=== PATIENT | male | born 1965 | race Caucasian/White ===

== ENCOUNTER 2016-08-04 08:00 | Outpatient (CLI) | payer BC ==
[~2016-08-04 08:00] MED LIST: ANAS1TAB8 PO; ATOR10TA PO; CALC-838 PO; CARV6.252 PO; LOSA1TAB36 PO; TADA5TAB2 PO; TEST200V3 IM
== END 2016-08-04 23:59 | disposition home or self-care (01) ==
LOC: WOU 08:00
PROVIDERS: ATTEND Podiatrist Foot & Ankle Surgery
DX: T81.31XA Disruption of external operation (surgical) wound, not elsewhere classified, initial encounter (principal); L90.5 Scar conditions and fibrosis of skin; T25.3 Burn of third degree of ankle and foot; T31.8 Burns involving 80-89% of body surface; X08.8XXS Exposure to other specified smoke, fire and flames, sequela; Z96.652 Presence of left artificial knee joint; I10 Essential (primary) hypertension
CPT/HCPCS: 11043; A6209; A6402

== ENCOUNTER 2016-08-25 14:21 | Outpatient (CLI) | payer BC | END 2016-08-25 23:59 | disposition home or self-care (01) | LOC: WOU 14:21 | PROVIDERS: ATTEND Podiatrist Foot & Ankle Surgery | DX: T81.31XA Disruption of external operation (surgical) wound, not elsewhere classified, initial encounter (principal); I96 Gangrene, not elsewhere classified; T31.8 Burns involving 80-89% of body surface; L90.5 Scar conditions and fibrosis of skin; T25.01 Burn of unspecified degree of ankle | CPT/HCPCS: 11043; A6402 ==

== ENCOUNTER 2016-09-01 13:39 | Outpatient (CLI) | payer BC | END 2016-09-01 23:59 | disposition home or self-care (01) | LOC: WOU 13:39 | PROVIDERS: ATTEND Podiatrist Foot & Ankle Surgery | DX: T81.31XD Disruption of external operation (surgical) wound, not elsewhere classified, subsequent encounter (principal); I10 Essential (primary) hypertension; T31.8 Burns involving 80-89% of body surface; L90.5 Scar conditions and fibrosis of skin; T25.01 Burn of unspecified degree of ankle; X08.8XXS Exposure to other specified smoke, fire and flames, sequela; E78.5 Hyperlipidemia, unspecified | CPT/HCPCS: 11043 ==

== ENCOUNTER 2016-09-06 08:57 | Outpatient (CLI) | payer BC | END 2016-09-06 23:59 | disposition home or self-care (01) | LOC: WOU 08:57 | PROVIDERS: ATTEND Podiatrist Foot & Ankle Surgery | DX: L97.329 Non-pressure chronic ulcer of left ankle with unspecified severity (principal); R60.0 Localized edema | CPT/HCPCS: 93925-TC; 93970-TC ==

== ENCOUNTER 2016-09-08 14:22 | Outpatient (CLI) | payer BC | END 2016-09-08 23:59 | disposition home or self-care (01) | LOC: WOU 14:22 | PROVIDERS: ATTEND Podiatrist Foot & Ankle Surgery | DX: T81.31XD Disruption of external operation (surgical) wound, not elsewhere classified, subsequent encounter (principal); L90.5 Scar conditions and fibrosis of skin; T31.8 Burns involving 80-89% of body surface; T25.01 Burn of unspecified degree of ankle; X08.8XXS Exposure to other specified smoke, fire and flames, sequela; I10 Essential (primary) hypertension; E78.5 Hyperlipidemia, unspecified; R60.0 Localized edema | CPT/HCPCS: 11043; A6402 ==

== ENCOUNTER 2016-09-19 13:16 | Outpatient (CLI) | payer BC | END 2016-09-19 23:59 | disposition home or self-care (01) | LOC: WOU 13:16 | PROVIDERS: ATTEND Podiatrist Foot & Ankle Surgery | DX: T81.31XD Disruption of external operation (surgical) wound, not elsewhere classified, subsequent encounter (principal); L90.5 Scar conditions and fibrosis of skin; T31.8 Burns involving 80-89% of body surface; T25.01 Burn of unspecified degree of ankle; X08.8XXS Exposure to other specified smoke, fire and flames, sequela; I10 Essential (primary) hypertension; E78.5 Hyperlipidemia, unspecified; R60.0 Localized edema; I96 Gangrene, not elsewhere classified | CPT/HCPCS: 11043; A6402 ==

== ENCOUNTER 2016-09-29 14:30 | Outpatient (CLI) | payer BC | END 2016-09-29 23:59 | disposition home or self-care (01) | LOC: WOU 14:30 | PROVIDERS: ATTEND Podiatrist Foot & Ankle Surgery | DX: T81.31XA Disruption of external operation (surgical) wound, not elsewhere classified, initial encounter (principal); L90.5 Scar conditions and fibrosis of skin; T31.8 Burns involving 80-89% of body surface; T25.01 Burn of unspecified degree of ankle; X08.8XXS Exposure to other specified smoke, fire and flames, sequela; I10 Essential (primary) hypertension; E78.5 Hyperlipidemia, unspecified; R60.0 Localized edema | CPT/HCPCS: 15271; A6207; A6402 ×2; Q4131 ×2; A6253 ==

== ENCOUNTER 2016-10-06 14:39 | Outpatient (CLI) | payer BC | END 2016-10-06 23:59 | disposition home or self-care (01) | LOC: WOU 14:39 | PROVIDERS: ATTEND Podiatrist Foot & Ankle Surgery | DX: T81.31XA Disruption of external operation (surgical) wound, not elsewhere classified, initial encounter (principal); L90.5 Scar conditions and fibrosis of skin; T31.8 Burns involving 80-89% of body surface; T25.01 Burn of unspecified degree of ankle; X08.8XXS Exposure to other specified smoke, fire and flames, sequela; I10 Essential (primary) hypertension; E78.5 Hyperlipidemia, unspecified; R60.0 Localized edema | CPT/HCPCS: 11043; A6402 ==

== ENCOUNTER 2016-10-10 14:16 | Outpatient (CLI) | payer BC | END 2016-10-10 23:59 | disposition home or self-care (01) | LOC: WOU 14:16 | PROVIDERS: ATTEND Podiatrist Foot & Ankle Surgery | DX: T81.31XD Disruption of external operation (surgical) wound, not elsewhere classified, subsequent encounter (principal); T25.01 Burn of unspecified degree of ankle; X08.8XXS Exposure to other specified smoke, fire and flames, sequela; I10 Essential (primary) hypertension; E78.5 Hyperlipidemia, unspecified; Z96.652 Presence of left artificial knee joint | CPT/HCPCS: 15271; A6402; Q4131 ==

== ENCOUNTER 2016-10-13 14:06 | Outpatient (CLI) | payer BC | END 2016-10-13 23:59 | disposition home or self-care (01) | LOC: WOU 14:06 | PROVIDERS: ATTEND Podiatrist Foot & Ankle Surgery | DX: T81.31XD Disruption of external operation (surgical) wound, not elsewhere classified, subsequent encounter (principal); I10 Essential (primary) hypertension; E78.5 Hyperlipidemia, unspecified; Z96.652 Presence of left artificial knee joint; T31.8 Burns involving 80-89% of body surface; L90.5 Scar conditions and fibrosis of skin; T25.01 Burn of unspecified degree of ankle; X08.8XXS Exposure to other specified smoke, fire and flames, sequela | CPT/HCPCS: 97605; A6402 ==

== ENCOUNTER 2016-10-17 14:10 | Outpatient (CLI) | payer BC | END 2016-10-17 23:59 | disposition home or self-care (01) | LOC: WOU 14:10 | PROVIDERS: ATTEND Podiatrist Foot & Ankle Surgery | DX: T81.31XD Disruption of external operation (surgical) wound, not elsewhere classified, subsequent encounter (principal); I10 Essential (primary) hypertension; E78.5 Hyperlipidemia, unspecified; Z96.652 Presence of left artificial knee joint; T31.8 Burns involving 80-89% of body surface; L90.5 Scar conditions and fibrosis of skin; T25.01 Burn of unspecified degree of ankle; X08.8XXS Exposure to other specified smoke, fire and flames, sequela | CPT/HCPCS: 15271; A6402 ==

== ENCOUNTER 2016-10-20 14:30 | Outpatient (CLI) | payer BC | END 2016-10-20 23:59 | disposition home or self-care (01) | LOC: WOU 14:30 | PROVIDERS: ATTEND Podiatrist Foot & Ankle Surgery | DX: T81.31XD Disruption of external operation (surgical) wound, not elsewhere classified, subsequent encounter (principal); I10 Essential (primary) hypertension; E78.5 Hyperlipidemia, unspecified; Z96.652 Presence of left artificial knee joint; T31.8 Burns involving 80-89% of body surface; L90.5 Scar conditions and fibrosis of skin; T25.01 Burn of unspecified degree of ankle; X08.8XXS Exposure to other specified smoke, fire and flames, sequela | CPT/HCPCS: A6402; G0463 ==

== ENCOUNTER 2016-10-24 14:28 | Outpatient (CLI) | payer BC | END 2016-10-24 23:59 | disposition home or self-care (01) | LOC: WOU 14:28 | PROVIDERS: ATTEND Podiatrist Foot & Ankle Surgery | DX: T81.31XD Disruption of external operation (surgical) wound, not elsewhere classified, subsequent encounter (principal); I10 Essential (primary) hypertension; E78.5 Hyperlipidemia, unspecified; Z96.652 Presence of left artificial knee joint; T31.8 Burns involving 80-89% of body surface; L90.5 Scar conditions and fibrosis of skin; T25.01 Burn of unspecified degree of ankle; X08.8XXS Exposure to other specified smoke, fire and flames, sequela; S91.022D Laceration with foreign body, left ankle, subsequent encounter; X58.XXXD Exposure to other specified factors, subsequent encounter | CPT/HCPCS: 15271; A6402; Q4131 ==

== ENCOUNTER 2016-10-31 13:56 | Outpatient (CLI) | payer BC | END 2016-10-31 23:59 | disposition home or self-care (01) | LOC: WOU 13:56 | PROVIDERS: ATTEND Podiatrist Foot & Ankle Surgery | DX: T81.31XD Disruption of external operation (surgical) wound, not elsewhere classified, subsequent encounter (principal); I10 Essential (primary) hypertension; E78.5 Hyperlipidemia, unspecified; Z96.652 Presence of left artificial knee joint; T31.8 Burns involving 80-89% of body surface; L90.5 Scar conditions and fibrosis of skin; T25.01 Burn of unspecified degree of ankle; X08.8XXS Exposure to other specified smoke, fire and flames, sequela; S91.022D Laceration with foreign body, left ankle, subsequent encounter; X58.XXXD Exposure to other specified factors, subsequent encounter | CPT/HCPCS: 15271; A6402; Q4131 ==

== ENCOUNTER 2016-11-07 14:13 | Outpatient (CLI) | payer BC | END 2016-11-07 23:59 | disposition home or self-care (01) | LOC: WOU 14:13 | PROVIDERS: ATTEND Podiatrist Foot & Ankle Surgery | DX: T81.31XD Disruption of external operation (surgical) wound, not elsewhere classified, subsequent encounter (principal); I10 Essential (primary) hypertension; E78.5 Hyperlipidemia, unspecified; Z96.652 Presence of left artificial knee joint; T31.8 Burns involving 80-89% of body surface; L90.5 Scar conditions and fibrosis of skin; T25.01 Burn of unspecified degree of ankle; X08.8XXS Exposure to other specified smoke, fire and flames, sequela; R60.0 Localized edema | CPT/HCPCS: 15271; A6402; Q4131 ==

== ENCOUNTER 2016-11-14 14:27 | Outpatient (CLI) | payer BC | END 2016-11-14 23:59 | disposition home or self-care (01) | LOC: WOU 14:27 | PROVIDERS: ATTEND Podiatrist Foot & Ankle Surgery | DX: T81.31XD Disruption of external operation (surgical) wound, not elsewhere classified, subsequent encounter (principal); I10 Essential (primary) hypertension; E78.5 Hyperlipidemia, unspecified; Z96.652 Presence of left artificial knee joint; T31.8 Burns involving 80-89% of body surface; L90.5 Scar conditions and fibrosis of skin; T25.01 Burn of unspecified degree of ankle; X08.8XXS Exposure to other specified smoke, fire and flames, sequela; R60.0 Localized edema | CPT/HCPCS: 15271; A6402 ==

== ENCOUNTER 2016-11-24 13:57 | Outpatient (CLI) | payer BC | END 2016-11-24 23:59 | disposition home health service (06) | LOC: WOU 13:57 | PROVIDERS: ATTEND Podiatrist Foot & Ankle Surgery | DX: T81.31XD Disruption of external operation (surgical) wound, not elsewhere classified, subsequent encounter (principal); I10 Essential (primary) hypertension; E78.5 Hyperlipidemia, unspecified; Z96.652 Presence of left artificial knee joint; T31.8 Burns involving 80-89% of body surface; L90.5 Scar conditions and fibrosis of skin; T25.01 Burn of unspecified degree of ankle; X08.8XXS Exposure to other specified smoke, fire and flames, sequela; S91.031D Puncture wound without foreign body, right ankle, subsequent encounter; X58.XXXD Exposure to other specified factors, subsequent encounter | CPT/HCPCS: 11042; A6402 ==

== ENCOUNTER 2016-11-28 14:25 | Outpatient (CLI) | payer BC | END 2016-11-28 23:59 | disposition home or self-care (01) | LOC: WOU 14:25 | PROVIDERS: ATTEND Surgery | DX: T81.31XD Disruption of external operation (surgical) wound, not elsewhere classified, subsequent encounter (principal); S91.031D Puncture wound without foreign body, right ankle, subsequent encounter; X58.XXXD Exposure to other specified factors, subsequent encounter; I10 Essential (primary) hypertension; E78.5 Hyperlipidemia, unspecified; Z96.652 Presence of left artificial knee joint; T31.8 Burns involving 80-89% of body surface; L90.5 Scar conditions and fibrosis of skin; T25.01 Burn of unspecified degree of ankle; X08.8XXS Exposure to other specified smoke, fire and flames, sequela | CPT/HCPCS: 15271; A6402 ==

== ENCOUNTER 2016-12-05 14:05 | Outpatient (CLI) | payer BC | END 2016-12-05 23:59 | disposition home or self-care (01) | LOC: WOU 14:05 | PROVIDERS: ATTEND Surgery | DX: T81.31XD Disruption of external operation (surgical) wound, not elsewhere classified, subsequent encounter (principal); S91.031D Puncture wound without foreign body, right ankle, subsequent encounter; X58.XXXD Exposure to other specified factors, subsequent encounter; I10 Essential (primary) hypertension; E78.5 Hyperlipidemia, unspecified; Z96.652 Presence of left artificial knee joint; T31.8 Burns involving 80-89% of body surface; L90.5 Scar conditions and fibrosis of skin; T25.01 Burn of unspecified degree of ankle; X08.8XXS Exposure to other specified smoke, fire and flames, sequela | CPT/HCPCS: 15271; A6402; Q4131 ==

== ENCOUNTER 2016-12-12 14:20 | Outpatient (CLI) | payer BC | END 2016-12-12 23:59 | disposition home or self-care (01) | LOC: WOU 14:20 | PROVIDERS: ATTEND Surgery | DX: T81.31XD Disruption of external operation (surgical) wound, not elsewhere classified, subsequent encounter (principal); S91.031D Puncture wound without foreign body, right ankle, subsequent encounter; X58.XXXD Exposure to other specified factors, subsequent encounter; I10 Essential (primary) hypertension; E78.5 Hyperlipidemia, unspecified; Z96.652 Presence of left artificial knee joint; T31.8 Burns involving 80-89% of body surface; L90.5 Scar conditions and fibrosis of skin; T25.01 Burn of unspecified degree of ankle; X08.8XXS Exposure to other specified smoke, fire and flames, sequela | CPT/HCPCS: 11042; A6402 ==

== ENCOUNTER 2016-12-19 14:20 | Outpatient (CLI) | payer BC | END 2016-12-19 23:59 | disposition home or self-care (01) | LOC: WOU 14:20 | PROVIDERS: ATTEND Surgery | DX: Z09 Encounter for follow-up examination after completed treatment for conditions other than malignant neoplasm (principal); I10 Essential (primary) hypertension; E78.5 Hyperlipidemia, unspecified; M25.562 Pain in left knee; Z96.652 Presence of left artificial knee joint; L90.5 Scar conditions and fibrosis of skin; T31.8 Burns involving 80-89% of body surface; T25.01 Burn of unspecified degree of ankle; X08.8XXS Exposure to other specified smoke, fire and flames, sequela | CPT/HCPCS: A6402; G0463 ==

== ENCOUNTER 2017-01-02 14:32 | Outpatient (CLI) | payer BC | END 2017-01-02 23:59 | disposition home or self-care (01) | LOC: WOU 14:32 | PROVIDERS: ATTEND Surgery | DX: T81.31XD Disruption of external operation (surgical) wound, not elsewhere classified, subsequent encounter (principal); S91.031D Puncture wound without foreign body, right ankle, subsequent encounter; X58.XXXD Exposure to other specified factors, subsequent encounter; I10 Essential (primary) hypertension; E78.5 Hyperlipidemia, unspecified; Z96.652 Presence of left artificial knee joint; T31.8 Burns involving 80-89% of body surface; L90.5 Scar conditions and fibrosis of skin; T25.01 Burn of unspecified degree of ankle; X08.8XXS Exposure to other specified smoke, fire and flames, sequela | CPT/HCPCS: 97602-TC; A6209; A6402 ==

== ENCOUNTER 2017-01-12 08:19 | Outpatient (CLI) | payer BC | END 2017-01-12 23:59 | disposition home or self-care (01) | LOC: WOU 08:19 | PROVIDERS: ATTEND Specialist | DX: T81.31XD Disruption of external operation (surgical) wound, not elsewhere classified, subsequent encounter (principal); S91.012D Laceration without foreign body, left ankle, subsequent encounter; V48.4XXD Person boarding or alighting a car injured in noncollision transport accident, subsequent encounter; X08.8XXS Exposure to other specified smoke, fire and flames, sequela; I10 Essential (primary) hypertension; E78.5 Hyperlipidemia, unspecified; Z96.652 Presence of left artificial knee joint; T31.8 Burns involving 80-89% of body surface; L90.5 Scar conditions and fibrosis of skin; T25.01 Burn of unspecified degree of ankle | CPT/HCPCS: 99213; A6402; G0463 ==

== ENCOUNTER 2017-01-23 14:35 | Outpatient (CLI) | payer BC | END 2017-01-23 23:59 | disposition home or self-care (01) | LOC: WOU 14:35 | PROVIDERS: ATTEND Surgery | DX: T81.31XD Disruption of external operation (surgical) wound, not elsewhere classified, subsequent encounter (principal); S91.031D Puncture wound without foreign body, right ankle, subsequent encounter; X58.XXXD Exposure to other specified factors, subsequent encounter; I10 Essential (primary) hypertension; E78.5 Hyperlipidemia, unspecified; Z96.652 Presence of left artificial knee joint; T31.8 Burns involving 80-89% of body surface; L90.5 Scar conditions and fibrosis of skin; T25.01 Burn of unspecified degree of ankle; X08.8XXS Exposure to other specified smoke, fire and flames, sequela; M19.90 Unspecified osteoarthritis, unspecified site | CPT/HCPCS: A6402; G0463 ==

== ENCOUNTER 2017-02-06 14:15 | Outpatient (CLI) | payer BC | END 2017-02-06 23:59 | disposition home or self-care (01) | LOC: WOU 14:15 | PROVIDERS: ATTEND Surgery | DX: Z09 Encounter for follow-up examination after completed treatment for conditions other than malignant neoplasm (principal); Z96.652 Presence of left artificial knee joint; T31.8 Burns involving 80-89% of body surface; L90.5 Scar conditions and fibrosis of skin; T25.01 Burn of unspecified degree of ankle; X08.8XXS Exposure to other specified smoke, fire and flames, sequela; E78.5 Hyperlipidemia, unspecified; I10 Essential (primary) hypertension; M19.90 Unspecified osteoarthritis, unspecified site; M25.562 Pain in left knee | CPT/HCPCS: A6402; G0463 ==

== ENCOUNTER 2018-10-24 10:50 | Outpatient (CLI) | payer BC | END 2018-10-24 23:59 | disposition home or self-care (01) | LOC: WOU 10:50 | PROVIDERS: ATTEND Specialist | DX: S91.021A Laceration with foreign body, right ankle, initial encounter (principal); X58.XXXA Exposure to other specified factors, initial encounter; Y92.89 Other specified places as the place of occurrence of the external cause; R60.0 Localized edema; T31.8 Burns involving 80-89% of body surface; M61.3 Calcification and ossification of muscles associated with burns; T24.009 Burn of unspecified degree of unspecified site of unspecified lower limb, except ankle and foot; X08.8XXS Exposure to other specified smoke, fire and flames, sequela | CPT/HCPCS: 11042; A6402; J7040 ==

== ENCOUNTER 2018-10-31 11:00 | Outpatient (CLI) | payer BC | END 2018-10-31 23:59 | disposition home or self-care (01) | LOC: WOU 11:00 | PROVIDERS: ATTEND Specialist | DX: S91.011A Laceration without foreign body, right ankle, initial encounter (principal); X58.XXXA Exposure to other specified factors, initial encounter; Y92.89 Other specified places as the place of occurrence of the external cause; T24.001S Burn of unspecified degree of unspecified site of right lower limb, except ankle and foot, sequela; T31.8 Burns involving 80-89% of body surface; M61.3 Calcification and ossification of muscles associated with burns; I10 Essential (primary) hypertension; E78.5 Hyperlipidemia, unspecified; Z96.652 Presence of left artificial knee joint | CPT/HCPCS: 11042; A6402; J7040 ==

== ENCOUNTER 2018-11-21 10:05 | Outpatient (CLI) | payer BC | END 2018-11-21 23:59 | disposition home or self-care (01) | LOC: WOU 10:05 | PROVIDERS: ATTEND Specialist | DX: S91.011A Laceration without foreign body, right ankle, initial encounter (principal); X58.XXXA Exposure to other specified factors, initial encounter; Y92.89 Other specified places as the place of occurrence of the external cause; T31.8 Burns involving 80-89% of body surface; M61.3 Calcification and ossification of muscles associated with burns; T25.011 Burn of unspecified degree of right ankle; X08.8XXS Exposure to other specified smoke, fire and flames, sequela; I10 Essential (primary) hypertension; E78.5 Hyperlipidemia, unspecified; Z79.899 Other long term (current) drug therapy | CPT/HCPCS: 11042; J7040 ==

== ENCOUNTER 2018-12-05 09:10 | Outpatient (CLI) | payer BC | END 2018-12-05 23:59 | disposition home or self-care (01) | LOC: WOU 09:10 | PROVIDERS: ATTEND Specialist | DX: S81.811A Laceration without foreign body, right lower leg, initial encounter (principal); X58.XXXA Exposure to other specified factors, initial encounter; Y92.89 Other specified places as the place of occurrence of the external cause; I10 Essential (primary) hypertension; E78.5 Hyperlipidemia, unspecified; M61.3 Calcification and ossification of muscles associated with burns | CPT/HCPCS: 11042; A6402 ==

== ENCOUNTER 2018-12-12 09:00 | Outpatient (CLI) | payer BC | END 2018-12-12 23:59 | disposition home or self-care (01) | LOC: WOU 09:00 | PROVIDERS: ATTEND Specialist | DX: S91.011A Laceration without foreign body, right ankle, initial encounter (principal); X58.XXXA Exposure to other specified factors, initial encounter; Y92.89 Other specified places as the place of occurrence of the external cause; M61.3 Calcification and ossification of muscles associated with burns; T24.001S Burn of unspecified degree of unspecified site of right lower limb, except ankle and foot, sequela; T31.8 Burns involving 80-89% of body surface | CPT/HCPCS: 11042; A6402; J7040 ×2 ==

== ENCOUNTER 2018-12-19 09:30 | Outpatient (CLI) | payer BC | END 2018-12-19 23:59 | disposition home or self-care (01) | LOC: WOU 09:30 | PROVIDERS: ATTEND Specialist | DX: S91.011A Laceration without foreign body, right ankle, initial encounter (principal); X58.XXXA Exposure to other specified factors, initial encounter; Y92.89 Other specified places as the place of occurrence of the external cause; M61.3 Calcification and ossification of muscles associated with burns; T30.0 Burn of unspecified body region, unspecified degree; T31.40 Burns involving 40-49% of body surface with 0% to 9% third degree burns; T25.011 Burn of unspecified degree of right ankle; X08.8XXS Exposure to other specified smoke, fire and flames, sequela | CPT/HCPCS: 11042; A6402; J7040 ==

== ENCOUNTER 2018-12-26 11:10 | Outpatient (CLI) | payer BC | END 2018-12-26 23:59 | disposition home or self-care (01) | LOC: WOU 11:10 | PROVIDERS: ATTEND Specialist | DX: S91.011A Laceration without foreign body, right ankle, initial encounter (principal); L03.115 Cellulitis of right lower limb; X58.XXXA Exposure to other specified factors, initial encounter; Y92.89 Other specified places as the place of occurrence of the external cause; T30.0 Burn of unspecified body region, unspecified degree; M61.3 Calcification and ossification of muscles associated with burns; X08.8XXS Exposure to other specified smoke, fire and flames, sequela | CPT/HCPCS: 11042; A6402; J7040 ==

== ENCOUNTER 2019-01-02 09:55 | Outpatient (CLI) | payer BC | END 2019-01-02 23:59 | disposition home or self-care (01) | LOC: WOU 09:55 | PROVIDERS: ATTEND Specialist | DX: S81.811A Laceration without foreign body, right lower leg, initial encounter (principal); X58.XXXA Exposure to other specified factors, initial encounter; Y92.89 Other specified places as the place of occurrence of the external cause; T31.8 Burns involving 80-89% of body surface; M61.3 Calcification and ossification of muscles associated with burns; T24.001S Burn of unspecified degree of unspecified site of right lower limb, except ankle and foot, sequela; V49.9XXS Car occupant (driver) (passenger) injured in unspecified traffic accident, sequela; I10 Essential (primary) hypertension; E78.5 Hyperlipidemia, unspecified | CPT/HCPCS: 11042; A6402; J7040 ==

== ENCOUNTER 2019-01-23 10:00 | Outpatient (CLI) | payer BC | END 2019-01-23 23:59 | disposition home or self-care (01) | LOC: WOU 10:00 | PROVIDERS: ATTEND Specialist | DX: S81.811A Laceration without foreign body, right lower leg, initial encounter (principal); W19.XXXA Unspecified fall, initial encounter; Y92.89 Other specified places as the place of occurrence of the external cause; T31.8 Burns involving 80-89% of body surface; M61.3 Calcification and ossification of muscles associated with burns; T24.001S Burn of unspecified degree of unspecified site of right lower limb, except ankle and foot, sequela; V99.XXXS Unspecified transport accident, sequela; I10 Essential (primary) hypertension; E78.5 Hyperlipidemia, unspecified | CPT/HCPCS: 11042; A6402; J7040 ==

== ENCOUNTER 2019-01-30 11:00 | Outpatient (CLI) | payer BC | END 2019-01-30 23:59 | disposition home or self-care (01) | LOC: WOU 11:00 | PROVIDERS: ATTEND Specialist | DX: S91.011A Laceration without foreign body, right ankle, initial encounter (principal); X58.XXXA Exposure to other specified factors, initial encounter; Y92.89 Other specified places as the place of occurrence of the external cause; M61.3 Calcification and ossification of muscles associated with burns; I10 Essential (primary) hypertension; E78.5 Hyperlipidemia, unspecified; T30.0 Burn of unspecified body region, unspecified degree; X08.8XXS Exposure to other specified smoke, fire and flames, sequela; V49.9XXS Car occupant (driver) (passenger) injured in unspecified traffic accident, sequela | CPT/HCPCS: 11042; A6209; A6402; J7040 ==

== ENCOUNTER 2019-02-06 11:00 | Outpatient (CLI) | payer BC | END 2019-02-06 23:59 | disposition home or self-care (01) | LOC: WOU 11:00 | PROVIDERS: ATTEND Specialist | DX: S81.811A Laceration without foreign body, right lower leg, initial encounter (principal); X58.XXXA Exposure to other specified factors, initial encounter; Y92.89 Other specified places as the place of occurrence of the external cause; M61.3 Calcification and ossification of muscles associated with burns; T30.0 Burn of unspecified body region, unspecified degree; T79.9XXS Unspecified early complication of trauma, sequela; V89.9XXS Person injured in unspecified vehicle accident, sequela; I10 Essential (primary) hypertension; E78.5 Hyperlipidemia, unspecified | CPT/HCPCS: 11042; 87070; 87075; 87077; A6402; J7040 ×2 ==